=== PATIENT | female | born 2000 | race Caucasian/White ===

== ENCOUNTER 2022-06-20 14:43 | Emergency (ER) | payer SELFPAY ==
[~2022-06-20] VITALS: Ht 157.5 cm; Wt 52.3 kg
[2022-06-20] MEDS ORDERED: PRENTAB9 PO (16:53)
== END 2022-06-20 16:19 | disposition admitted as inpatient to this hospital (09) ==
LOC: M ED 14:43
DX: M54.50 Low back pain, unspecified (principal); Z91.02 Food additives allergy status; Z3A.27 27 weeks gestation of pregnancy

== ENCOUNTER 2022-06-20 16:28 | Outpatient (CLI) ==
[~2022-06-20] VITALS: Ht 157.5 cm; Wt 49.2 kg
[2022-06-20 16:45] VITALS: BP 108/59
[2022-06-20] MEDS ORDERED: PRENTAB9 PO (16:53)
== END 2022-06-20 17:15 | disposition home or self-care (01) ==
LOC: M LDO 16:28
PROVIDERS: ATTEND Obstetrics & Gynecology
DX: O26.892 Other specified pregnancy related conditions, second trimester (principal); R10.2 Pelvic and perineal pain; Z3A.27 27 weeks gestation of pregnancy; Z91.018 Allergy to other foods
CPT/HCPCS: 59025; G0378; G0463

== ENCOUNTER 2022-07-05 12:03 | Outpatient (CLI) | payer OTHER ==
[~2022-07-05] VITALS: Ht 160 cm; Wt 48.6 kg
[~2022-07-05 12:03] MED LIST: ALBUTEROL SULFATE 2.5 MG/0.5 ML INH NEB SOLN INH PRN; EPINEPHrine INJ 1 MG/ML 1ML AMP IM PRN; IRON SUCROSE 200 MG in NS 100 ML OVER 1 HR IV ONE; IRON SUCROSE 300 MG in NS 250 ML OVER 90 MIN. IV ONE; NS 1,000 ML IV SCH; PRENTAB9 PO; diphenhydrAMINE 50MG/ML VIAL (J1200) IV PRN; methylPREDNISolone 125MG 2ML VIAL IV PRN
[2022-07-05 12:20] VITALS: BP 102/63
[2022-07-05 14:15] VITALS: BP 113/57
[2022-07-05 15:15] VITALS: BP 112/63
== END 2022-07-05 15:15 | disposition home or self-care (01) ==
LOC: M INFU 12:03
PROVIDERS: ATTEND Nurse Practitioner Women's Health
DX: D64.9 Anemia, unspecified (principal); Z91.018 Allergy to other foods
CPT/HCPCS: 96365; 96366; J1756

== ENCOUNTER 2022-07-12 10:55 | Outpatient (CLI) | payer OTHER ==
[~2022-07-12] VITALS: Ht 160 cm; Wt 48.6 kg
[2022-07-12 10:55] VITALS: BP 114/53
[~2022-07-12 10:55] MED LIST changes: -IRON SUCROSE 200 MG in NS 100 ML OVER 1 HR IV ONE; -IRON SUCROSE 300 MG in NS 250 ML OVER 90 MIN. IV ONE; -NS 1,000 ML IV SCH
[2022-07-12] MEDS ORDERED: NS 1,000 ML IV SCH (11:30)
[2022-07-12] MEDS ORDERED: IRON SUCROSE 300 MG in NS 250 ML OVER 90 MIN. IV ONE (11:30)
[2022-07-12 12:40] VITALS: BP 110/51
[2022-07-12 13:15] VITALS: BP 120/61
== END 2022-07-12 13:25 | disposition home or self-care (01) ==
LOC: M INFU 10:55
PROVIDERS: ATTEND Nurse Practitioner Women's Health
DX: D46.9 Myelodysplastic syndrome, unspecified (principal); Z91.018 Allergy to other foods
CPT/HCPCS: 96365; 96366; J1756

== ENCOUNTER 2022-07-12 15:07 | Emergency (ER) | payer OTHER ==
[~2022-07-12] VITALS: Ht 160 cm; Wt 51.1 kg
[~2022-07-12 15:07] MED LIST changes: -ALBUTEROL SULFATE 2.5 MG/0.5 ML INH NEB SOLN INH PRN; -EPINEPHrine INJ 1 MG/ML 1ML AMP IM PRN; -diphenhydrAMINE 50MG/ML VIAL (J1200) IV PRN; -methylPREDNISolone 125MG 2ML VIAL IV PRN
[2022-07-12 15:10] VITALS: BP 125/64
== END 2022-07-12 19:19 | disposition left against medical advice (07) ==
LOC: M ED 15:07
DX: Z53.21 Procedure and treatment not carried out due to patient leaving prior to being seen by health care provider (principal)

== ENCOUNTER 2022-07-20 08:30 | Outpatient (CLI) | payer OTHER ==
[~2022-07-20] VITALS: Ht 160 cm; Wt 51.0 kg
[2022-07-20 08:54] VITALS: BP 119/67
[2022-07-20] MEDS ORDERED: HOME MED LIST COMPLETE! XX SCH (09:40)
[2022-07-20 09:42] LABS: BASO % 0.1 % (0.0-1.0); EOS # 0.1 10^3/uL (0.0-0.5); EOS % 0.9 % (0.0-3.0); HEMATOCRIT 33.8 % (36.0-47.0); HEMOGLOBIN 9.5 g/dl (12.0-15.5); LYMPH # 1.9 10^3/uL (1.5-5.0); LYMPH % 24.6 % (24.0-44.0); MEAN CORPUSCULAR HEMOGLOBIN 21.5 pg (27.0-33.0); MEAN CORPUSCULAR HGB CONC 28.1 g/dl (32.0-36.5); MEAN CORPUSCULAR VOLUME 76.6 fl (80.0-96.0); MONO # 0.5 10^3/uL (0.0-0.8); MONO % 6.1 % (2.0-8.0); NEUTROPHILS # 5.3 10^3/uL (1.5-8.5); NEUTROPHILS % 67.8 % (36.0-66.0); PLATELET COUNT, AUTOMATED 269 10^3/uL (150-450); RED BLOOD COUNT 4.41 10^6/uL (4.00-5.40); WHITE BLOOD COUNT 7.8 10^3/uL (4.0-10.0)
[2022-07-20 10:28] LABS: BILIRUBIN,DIRECT < 0.1 MG/DL (0.0-0.2); BILIRUBIN,TOTAL 0.2 MG/DL (0.2-1.0); FERRITIN 188 NG/ML (8-252); LDH LACTATE DEHYDROGENASE 168 U/L (84-246)
[2022-07-20 11:00] VITALS: BP 119/56
[2022-07-20 12:27] VITALS: BP 128/68
[2022-07-23 11:18] LABS: FACTOR VIII AG (VON WILLEBRAN) >597 % (50-200); HAPTOGLOBIN 140 mg/dL (33-278)
== END 2022-07-20 13:05 | disposition home or self-care (01) ==
LOC: M LDO 08:30
PROVIDERS: ATTEND Obstetrics & Gynecology
DX: O99.013 Anemia complicating pregnancy, third trimester (principal); Z3A.31 31 weeks gestation of pregnancy; O26.843 Uterine size-date discrepancy, third trimester; Z91.018 Allergy to other foods
CPT/HCPCS: 36415; 59025; 76811; 76820; 80503; 82247; 82248; 82728; 83010; 83615; 85025; 85046; 85246; 86850; 86900; 86901; 86920; G0463